=== PATIENT | female | born 1955 | race Caucasian/White ===

== ENCOUNTER 2016-09-07 08:43 | Day surgery (SDC) | payer OTHER ==
[~2016-09-07 08:43] MED LIST: PROPOFOL 500 MG/50 ML EMU IV ONE
[2016-09-07 11:43] VITALS: TEMP 97.6
[2016-09-07 11:58] VITALS: BP 115/71; PULSE 85; RESP 20; O2SAT 96
== END 2016-09-07 12:20 | disposition home or self-care (01) ==
LOC: SURG 08:43
PROVIDERS: ATTEND Surgery
DX: Z12.11 Encounter for screening for malignant neoplasm of colon (principal); D12.5 Benign neoplasm of sigmoid colon; D12.3 Benign neoplasm of transverse colon
CPT/HCPCS: 45385; 99001; J2704

== ENCOUNTER 2016-09-10 20:11 | Emergency (ER) | payer OTHER ==
[2016-09-10 20:43] LABS: BASOPHILS % (AUTO) 1 % (0-3); EOSINOPHILS % (AUTO) 1 % (0-9); HEMATOCRIT 32 % (35-47); MEAN CORPUSCULAR HGB CONC 35.3 gm/dl (32.0-36.0); MEAN CORPUSCULAR VOLUME 85 fL (81-99); MONOCYTES % (AUTO) 8.8 % (0-12)
[2016-09-10 21:01] LABS: CALCIUM 8.9 mg/dl (8.5-10.1); GLOM FILT RATE 85 mL/min (>60); POTASSIUM 3.7 mMol/L (3.5-5.1); SODIUM 137 mMol/L (136-145)
[2016-09-10 21:32] VITALS: TEMP 99.3
[2016-09-10 22:48] VITALS: BP 108/49; PULSE 78; RESP 21; O2SAT 98
== END 2016-09-10 21:55 | disposition home or self-care (01) ==
LOC: ED 20:11
DX: K21.9 Gastro-esophageal reflux disease without esophagitis (principal)
CPT/HCPCS: 36415; 71010; 80048; 84484; 85025; 93005; 99284

== ENCOUNTER 2016-12-22 10:06 | Emergency (ER) | payer OTHER ==
[2016-12-22 10:27] VITALS: RESP 16
[2016-12-22] MEDS ORDERED: APAP/OXYCODONE 325/5 TAB ONE (11:00)
[2016-12-22] MEDS ORDERED: APAP/OXYCODONE 325/5 TAB PO ONE (11:00)
[2016-12-22 11:08] VITALS: TEMP 98.3
[2016-12-22 13:25] LABS: METHADONE NEGATIVE (NEGATIVE); OPIATES(OP13) NEGATIVE (NEGATIVE); TRICYCLIC ANTIDEPRESSANTS NEGATIVE (NEGATIVE)
[2016-12-22 13:26] LABS: AMPHETAMINES NEGATIVE (NEGATIVE); OXYCODONE(OXY) POSITIVE (NEGATIVE); PROPOXYPHENE(PPX) NEGATIVE (NEGATIVE)
[2016-12-22 13:35] VITALS: BP 129/65; PULSE 78; O2SAT 100
== END 2016-12-22 13:42 | disposition home or self-care (01) | DRG 605 ==
LOC: ED 10:06
DX: S70.01XA Contusion of right hip, initial encounter (principal); S40.011A Contusion of right shoulder, initial encounter; W01.0XXA Fall on same level from slipping, tripping and stumbling without subsequent striking against object, initial encounter; Y92.59 Other trade areas as the place of occurrence of the external cause
CPT/HCPCS: 72170; 73030; 73502; 80305; 99284